=== PATIENT | male | born 1995 | race Caucasian/White ===

== ENCOUNTER 2017-03-07 19:31 | Emergency (ER) | payer BC ==
[~2017-03-07] VITALS: Ht 182.9 cm; Wt 78.3 kg
[~2017-03-07 19:31] MED LIST: FLEXERIL10 MG PO; IBUPROFEN600 MG PO; MOTRIN600 MG PO; ULTRAM50 MG PO
[2017-03-07 21:23] VITALS: BP 125/86
== END 2017-03-07 21:20 | disposition home or self-care (01) ==
LOC: EME 19:31
DX: S83.92XA Sprain of unspecified site of left knee, initial encounter (principal); M79.662 Pain in left lower leg; W22.8XXA Striking against or struck by other objects, initial encounter; F17.200 Nicotine dependence, unspecified, uncomplicated
CPT/HCPCS: 73564; 99281; 99283